=== PATIENT | female | born 2000 | race Caucasian/White ===

== ENCOUNTER 2018-10-18 17:40 | Emergency (ER) | payer OTHER ==
[~2018-10-18] VITALS: Ht 170.2 cm; Wt 72.6 kg
[2018-10-18 17:42] VITALS: Ht 170.2 cm; Wt 72.6 kg
[2018-10-18 20:19] VITALS: BP 136/71
== END 2018-10-18 20:19 | disposition home or self-care (01) ==
LOC: ED 17:40
DX: A60.00 Herpesviral infection of urogenital system, unspecified (principal); N39.0 Urinary tract infection, site not specified; F17.210 Nicotine dependence, cigarettes, uncomplicated
CPT/HCPCS: 87491; 87591; J0696

== ENCOUNTER 2018-10-21 11:08 | Emergency (ER) | payer OTHER ==
[~2018-10-21] VITALS: Ht 167.6 cm; Wt 72.1 kg
[2018-10-21 11:23] VITALS: BP 112/68; Ht 167.6 cm; Wt 72.1 kg
== END 2018-10-21 12:50 | disposition home or self-care (01) ==
LOC: ED 11:08
DX: T50.995A Adverse effect of other drugs, medicaments and biological substances, initial encounter (principal); N39.0 Urinary tract infection, site not specified; F17.210 Nicotine dependence, cigarettes, uncomplicated; Y92.89 Other specified places as the place of occurrence of the external cause